=== PATIENT | female | born 1975 | race Caucasian/White ===

== ENCOUNTER 2021-01-12 09:14 | Outpatient (CLI) | payer OTHER, SELFPAY ==
--- NOTE | 2021-01-12 11:30 | NEURO_ITS ---
Impression: # Complains of numbness of left hand. # No Carpal Tunnel Syndrome. # No ulnar neuropathy. # Normal needle/EMG exam. Nerve Conduction Studies Anti Sensory Summary Table Stim Site NR Peak (ms) P-T Amp (?V) Site1 Site2 Delta-P (ms) Dist (cm) Kodak (m/s) Left Median Anti Sensory (2-3nd Digit) Wrist 3.1 90.2 Wrist 2-3nd Digit 3.1 14.0 45 Wrist 3.2 98.2 Wrist 2-3nd Digit 3.1 14.0 45 Left Radial Anti Sensory (Base 1st Digit) Wrist 2.1 4.8 Wrist Base 1st Digit 2.1 0.0 Left Ulnar Anti Sensory (5th Digit) Wrist 2.6 76.0 Wrist 5th Digit 2.6 14.0 54 Motor Summary Table Stim Site NR Onset (ms) O-P Amp (mV) Site1 Site2 Delta-0 (ms) Dist (cm) Kodak (m/s) Left Median Motor (Abd Poll Brev) Wrist 3.0 6.5 Elbow Wrist 4.7 28.0 60 Elbow 7.7 6.0 Left Ulnar Motor (Abd Dig Minimi) Wrist 2.3 6.3 A Elbow Wrist 4.9 29.0 59 A Elbow 7.2 5.7 F Wave Studies NR F-Lat (ms) L-R F-Lat (ms) Left Median (Mrkrs) (Abd Poll Brev) 27.25 Left Ulnar (Mrkrs) (Abd Dig Min) 28.01 EMG Side Muscle Nerve Root Ins Act Fibs Amp Dur Recrt Comment Left 1stDorInt Ulnar C8-T1 Nml Nml Nml Nml Nml Left Ext Indicis Radial (Post Int) C7-8 Nml Nml Nml Nml Nml Left Ext Digitorum Radial (Post Int) C7-8 Nml Nml Nml Nml Nml Left BrachioRad Radial C5-6 Nml Nml Nml Nml Nml Left PronatorTeres Median C6-7 Nml Nml Nml Nml Nml Left Abd Poll Brev Median C8-T1 Nml Nml Nml Nml Nml MTDD
== END 2021-01-12 09:15 | disposition home or self-care (01) ==
LOC: ANHNEURO 09:17
PROVIDERS: Visit Provider Orthopaedic Surgery
DX: M25.532 Pain in left wrist (principal)
CPT/HCPCS: 95886; 95909

== ENCOUNTER 2021-12-26 10:31 | Outpatient (CLI) | payer OTHER, SELFPAY ==
--- NOTE | 2021-12-26 | EST_ITS ---
Patient Info Name: Beverly Schwarz Age: 46 years : 1975 Gender: Female Ht: 66 in Wt: 160 lbs BSA: 1.85 m2 HR: 66 bpm BP: 178 / 88 mmHg Heart Rhythm: Sinus Rhythm Exam Date: 12/26/2021 11:14 AM Exam Location: [facility] Stress Patient Status: Outpatient Admit Date: 12/26/2021 Staff Ordering Physician: Marva, Iman Hooks [facility] Attending Provider: Marva, Iman Hooks [facility] Exercise Technologist: Shamika Nava CT Nurse: ami renee Exam Type: CA stress test treadmill Study Info Indications R07.9 - Chest pain, unspecified A treadmill exercise stress test was performed. Summary 1. No arrhythmias were observed during the examination. 2. Equivocal ECG response exercise with rapidly upsloping ST segment depression in the inferolateral leads of approximately 1-1.5mm. 3. Exercise capacity fair to good at 6-10 METS. 4. Stress-induced chest pain, shortness of breath and left arm tingling. 5. Maximal treadmill stress ECG study achieving 87% of age predicted maximum heart rate and 7.7 METS at peak exercise. 6. Hypertensive at baseline with hypertensive blood pressure response to exercise. 7. Stephens treadmill score +2 indicating intermediate risk for adverse cardiovascular events over the next 5 years. 8. Consider repeat study with imaging to improve sensitivity and specificity for myocardial ischemia. Clinical correlation advised. Protocol: [facility] Stress ECG Details Stage: REST Duration (min): 1 min : 50 sec Speed (mph): 0.0 Grade (%): 0 HR (bpm): 67 SBP (mmHg): 178 DBP (mmHg): 88 METS: --- Stage: REST Duration (min): 7 min : 43 sec Speed (mph): 0.0 Grade (%): 0 HR (bpm): 77 SBP (mmHg): 178 DBP (mmHg): 88 METS: --- Stage: STAGE 1 Duration (min): 1 min : 0 sec Speed (mph): 1.7 Grade (%): 10 HR (bpm): 95 SBP (mmHg): 178 DBP (mmHg): 88 METS: --- Stage: STAGE 1 Duration (min): 2 min : 0 sec Speed (mph): 1.7 Grade (%): 10 HR (bpm): 107 SBP (mmHg): 178 DBP (mmHg): 88 METS: --- Stage: STAGE 1 Duration (min): 3 min : 0 sec Speed (mph): 1.7 Grade (%): 10 HR (bpm): 114 SBP (mmHg): 174 DBP (mmHg): 88 METS: --- Stage: STAGE 2 Duration (min): 1 min : 0 sec Speed (mph): 2.5 Grade (%): 12 HR (bpm): 121 SBP (mmHg): 174 DBP (mmHg): 88 METS: --- Stage: STAGE 2 Duration (min): 2 min : 0 sec Speed (mph): 2.5 Grade (%): 12 HR (bpm): 134 SBP (mmHg): 206 DBP (mmHg): 85 METS: --- Stage: STAGE 2 Duration (min): 3 min : 0 sec Speed (mph): 2.5 Grade (%): 12 HR (bpm): 147 SBP (mmHg): 206 DBP (mmHg): 85 METS: --- Stage: STAGE 3 Duration (min): 0 min : 25 sec Speed (mph): 3.4 Grade (%): 14 HR (bpm): 152 SBP (mmHg): 206 DBP (mmHg): 85 METS: --- Stage: RECOVERY Duration (min): 0 min : 34 sec Speed (mph): 0.0 Grade (%): 0 HR (bpm): 144 SBP (mmHg): 228 DBP (mmHg): 89 METS: ---
--- NOTE | 2021-12-26 | ECG_ITS ---
Measurements Intervals [place] Rate: 73 P: 75 [place]: 167 QRS: 42 QRSD: 98 T: 59 QT: 388 QTc: 430 Interpretive Statements SINUS RHYTHM NORMAL ECG NO PREVIOUS ECG AVAILABLE FOR COMPARISON Electronically Signed On 12-26-2021 15:00:47 CDT by Brandin Pineda M.D.
== END 2021-12-26 10:32 | disposition home or self-care (01) ==
LOC: ANHCARD 10:33
PROVIDERS: Visit Provider Nurse Practitioner Family
DX: R07.89 Other chest pain (principal)
CPT/HCPCS: 93005; 93017

== ENCOUNTER 2022-01-04 12:34 | Outpatient (CLI) | payer OTHER, SELFPAY ==
--- NOTE | ~2022-01-04 | US_ITS ---
EXAMINATION: US carotid duplex BI DATE: 01/04/2022 13:37 INDICATION: Subjective visual disturbance with unexplained visual loss TECHNIQUE: Grayscale, color Doppler, and pulsed Doppler images of the cervical carotid arteries were obtained. The degree of vessel stenosis is placed in one of the following categories: normal, <50%, 5 0-69%, >=70% but less than near-occlusion, near-occlusion, or total occlusion. Note that percent sten osis relative to normal distal artery lumen diameter is indirectly measured from velocity measurement s as described by Dalton, et al. Radiology 2003; 229:340-346. COMPARISON: None. FINDINGS: RIGHT: The right common carotid artery (CCA) peak systolic velocity (PSV) is 179 cm/s proximally, 98 cm/s di stally. The right internal carotid artery (ICA) PSV is 93 cm/s. The right ICA end-diastolic velocity (EDV) is 35 cm/s. The right ICA/CCA PSV ratio is 0.9. Grayscale and color Doppler images yield an est imate of <50% diameter reduction from plaque in the ICA. The external carotid artery (ECA) PSV is 167 cm/s. There is antegrade flow in the right vertebral artery. LEFT: The left CCA PSV is 79 cm/s. The left ICA PSV is 119 cm/s. The left ICA EDV is 43 cm/s. The left ICA/ CCA PSV ratio is 1.5. Grayscale and color Doppler images yield an estimate of <50% diameter reduction from plaque in the ICA. The ECA PSV is 154 cm/s. There is antegrade flow in the left vertebral arter y. IMPRESSION: 1. <50% stenosis in the right internal carotid artery. 2. <50% stenosis in the left internal carotid artery. Reviewed, dictated and finalized at location B.
== END 2022-01-04 12:35 | disposition home or self-care (01) ==
LOC: ANHIMG 12:39
PROVIDERS: PCP Nurse Practitioner Family; Visit Provider Nurse Practitioner Family
DX: I65.23 Occlusion and stenosis of bilateral carotid arteries (principal); H54.7 Unspecified visual loss
CPT/HCPCS: 93880